=== PATIENT | female | born 2000 | race Caucasian/White ===

== ENCOUNTER 2021-07-19 18:19 | Emergency (ER) | payer OTHER ==
[~2021-07-19] VITALS: Ht 160 cm; Wt 66.7 kg
[2021-07-19 18:21] VITALS: BP 125/76
--- NOTE | 2021-07-19 18:37 | NUR ---
21 Y/O FEMALE C/O YELLOWISH VAGINAL DISCHARGE X 2 MONTHS. PT STATES ODOR TO DISCHARGE. DENIES ANY BLOOD IN URINE. DENIES ANY PAIN CURRERNTLY. PMH: MARIJUANA SMOKING NKA
--- NOTE | 2021-07-19 18:50 | NUR ---
DR MUNOZ AT BEDSIDE EXAMINING PT
--- NOTE | 2021-07-19 18:56 | NUR ---
Pelvic exam performed by DR MUNOZ with ARI DURAND at bedside for entire examination. Patient tolerated procedure WELL. Patient assisted to position of comfort after examination.
--- NOTE | 2021-07-19 19:03 | NUR ---
[facility] SENT TO LAB
--- NOTE | 2021-07-19 19:15 | NUR ---
URINE DROPPED OFF AT LAB WITH CHUCKY OLSON
--- NOTE | 2021-07-19 19:16 | NUR ---
Pt report given to PANCHO DURAND. Transfer of care at this time.
[2021-07-19 19:20] LABS: APPEARANCE,URINE HAZY (CLEAR); BILIRUBIN,URINE NEGATIVE (NEGATIVE); BLOOD, URINE TRACE-I (NEGATIVE); COLOR,URINE YELLOW (YELLOW); LEUKOCYTE ESTERASE ,URINE 2+ (NEGATIVE); NITRITE, URINE NEGATIVE (NEGATIVE); PH,URINE 6.5 (5.0-9.0); UGLUCOSE NEGATIVE (NEGATIVE)
[2021-07-19] MEDS ORDERED: cefTRIAXone 500 MG in LIDOCAINE MPF 1% 1 ML IM ONE (19:20)
[2021-07-19] MEDS ORDERED: cefTRIAXone 500 MG VIAL ONE (19:32)
[2021-07-19] MEDS ORDERED: LIDOCAINE MPF 1% 5 ML ONE (19:32)
[2021-07-19 19:41] LABS: RBC,URINE 0-5 /HPF (0-5); WBC,URINE 60-80 /HPF (0-5)
[2021-07-19] MEDS ORDERED: DOXY-565 PO (19:46)
[2021-07-19] MEDS ORDERED: METR-520 PO (19:46)
[2021-07-19 19:59] VITALS: BP 125/76
--- NOTE | 2021-07-19 19:59 | NUR ---
Patient discharged with v/s stable. Written and verbal after care instructions given and explained. Patient alert, oriented and verbalized understanding of instructions. Ambulatory with steady gait. All questions addressed prior to discharge. ID band removed. Patient advised to follow up with PMD. Rx of DOXYCYCLINE, FLAGYL given. Patient educated on indication of medication including possible reaction and side effects. Opportunity to ask questions provided and answered.
[2021-07-19] MEDS ORDERED: NITR100C7 PO (20:10)
== END 2021-07-19 19:59 | disposition home or self-care (01) ==
LOC: MED 18:19
DX: N73.9 Female pelvic inflammatory disease, unspecified (principal); A59.01 Trichomonal vulvovaginitis
CPT/HCPCS: 81001; 81025; 87086; 87110; 87210; 87299; 96372; 99284; J0696; J2001

== ENCOUNTER 2022-03-14 12:19 | Emergency (ER) | payer MEDICAID, OTHER ==
[~2022-03-14] VITALS: Ht 160 cm; Wt 66.7 kg
[~2022-03-14 12:19] MED LIST: DOXY-565 PO; METR-520 PO; NITR100C7 PO
[2022-03-14 12:33] VITALS: BP 124/86
--- NOTE | 2022-03-14 12:44 | NUR ---
PT AMBULATED TO ER BED 6
--- NOTE | 2022-03-14 12:59 | NUR ---
PA ROTH AT BEDSIDE EVALUATING PT
--- NOTE | 2022-03-14 13:08 | NUR ---
Female Block Greaser accompanied female patient for BREAST Exam.
[2022-03-14] MEDS ORDERED: IBUP-2213 PO (13:12)
--- NOTE | 2022-03-14 13:13 | NUR ---
21 Y/O FEMALE C/O BILATERAL BREAST PAIN X2 WEEKS. PT DENIES NIPPLE DISCHARGE/DISCOLORATION. PT REPORTS HAVING RASH TO BILAT NIPPLES X1 YEAR. PT REPORTS PUTTING HYDROCORTISONE TO NIPPLES WITHOUT IMPROVEMENT. BROWN SCABS NOTED TO TIP OF BILATERAL NIPPLES. DENIES FEVER/CHILLS. PT DENIES BREAST FEEDING. PT REPORTS X2 ABORTIONS. PT REPORTS GOING TO 2 DIFFERENT HOSPITALS. [facility] STATED "WE CANT HELP YOU" AND [facility] STATED SHE HAD CYSTS AND NEEDED A MAMMAGRAM BUT PT HAD PROBLEMS WITH INS AND LEFT. PT DENIES ANY PAIN AT THIS TIME, ONLY DURING PALPATION. PT A/O X4 WITH EVEN AND UNLABORED RESPIRATIONS PMH:DENIES NKDA
--- NOTE | 2022-03-14 13:15 | NUR ---
ULTRASOUND DONE AT BEDSIDE WITH AWA MARSH AND MAYKEL DURAND . PT WILL BE DC AFTER URINE OBTAINED . URINE PREG NEG
== END 2022-03-14 13:22 | disposition home or self-care (01) ==
LOC: MED 12:19
DX: N64.4 Mastodynia (principal)
CPT/HCPCS: 81025; 99282